=== PATIENT | male | born 1970 | race Two or more races ===

== ENCOUNTER 2018-07-05 11:14 | Inpatient (IN) | payer OTHER ==
[~2018-07-05] VITALS: Ht 172.7 cm; Wt 73.5 kg
[2018-07-05] VITALS (10 sets, daily range): BP systolic 105–137; BP diastolic 58–98
[2018-07-05 12:17] LABS: BASOPHILS % 0.3 % (0.0-2.0); EOSINOPHILS % 0.5 % (0.0-5.0); HEMATOCRIT. 42.2 % (42.0-52.0); HEMOGLOBIN. 14.9 g/dL (14.0-18.0); LYMPHOCYTES % 14.8 % (20.0-50.0); MEAN CORPUSCULAR HEMOGLOBIN 31.7 pg (28.0-32.0); MEAN CORPUSCULAR VOLUME 89.7 fL (80.0-94.0); MONOCYTES % 4.7 % (2.0-8.0); NEUTROPHILS % 79.7 % (40.0-76.0); PLATELET 226 x1000/uL (130-400); RED CELL DISTRIBUTION WIDTH 12.6 % (11.6-14.6)
[2018-07-05 12:24] LABS: CHLORIDE 101 mEq/L (98-107)
[2018-07-05 12:28] LABS: ETHANOL BLOOD < 10 mg/dL
[2018-07-05 12:31] LABS: LDL CHOLESTEROL 116 mg/dL (5-100)
[2018-07-05 12:55] LABS: INR 1.1; PROTHROMBIN TIME 10.7 sec (9.1-11.1)
[2018-07-05] MEDS ORDERED: LORAZEPAM 2MG/ML CPJ IV ONE ×3 (13:15→15:15)
[2018-07-05] MEDS ORDERED: LORAZEPAM 2MG/ML CPJ ONE (13:23)
[2018-07-05] MEDS ORDERED: IOHEXOL-350 100 ML BOTTLE ONE (14:11)
[2018-07-05] MEDS ORDERED: SODIUM CHLORIDE 0.9% 1000ML BAG (SEPSIS BOLUS) IV ONE (15:30)
[2018-07-05] MEDS ORDERED: HALOPERIDOL LACTATE 5MG/ML VIAL IM ONE ×2 (15:45→15:47)
[2018-07-05] MEDS ORDERED: DIPHENHYDRAMINE 50MG/ML VIAL IM PRN (15:45)
[2018-07-05] MEDS ORDERED: ONDANSETRON HCL 4MG/2ML VIAL IV ONE (15:45)
[2018-07-05 16:29] LABS: CLARITY URINE CLEAR (CLEAR); COLOR URINE YELLOW (YELLOW); KETONES URINE 3+ (NEGATIVE); LEUKOCYTE ESTERASE URINE NEGATIVE (NEGATIVE); NITRITE URINE NEGATIVE (NEGATIVE); OCCULT BLOOD URINE 2+ (NEGATIVE); PH URINE 6.5 (4.5-8.0); PROTEIN URINE NEGATIVE (NEGATIVE); SPECIFIC GRAVITY URINE 1.045 (1.005-1.030); UROBILINOGEN URINE 0.2 E.U./dL (0.2-1.0)
[2018-07-05] MEDS ORDERED: CEFTRIAXONE 2 G PREMIX 50 ML IV ONE (16:30)
[2018-07-05] MEDS ORDERED: VANCOMYCIN 1 G PREMIX 200 ML IV SCH (16:30)
[2018-07-05] MEDS ORDERED: PIPERACILLIN/TAZOBACTAM 3.375GM/50ML PREMIX IV ONE (16:30)
[2018-07-05] MEDS ORDERED: PIPERACILLIN/TAZ 3.375G PREMIX 50 ML IV NR (16:30)
[2018-07-05 16:51] LABS: *COCAINE SCREEN URINE NEGATIVE (NEGATIVE); METHADONE URINE SCREEN NEGATIVE (NEGATIVE); OPIATES URINE SCREEN NEGATIVE (NEGATIVE); PHENCYCLIDINE URINE SCREEN NEGATIVE (NEGATIVE)
[2018-07-05 16:52] LABS: *AMPHETAMINES SCREEN URINE NEGATIVE (NEGATIVE); *BARBITURATES SCREEN URINE NEGATIVE (NEGATIVE); *BENZODIAZEPINES SCREEN URINE NEGATIVE (NEGATIVE); CANNABINOID URINE SCREEN NEGATIVE (NEGATIVE)
[2018-07-05] MEDS ORDERED: HYDROCODONE/ACETAMINOPHEN 5/325MG TABLET PO PRN (17:30)
[2018-07-05] MEDS ORDERED: DOCUSATE SODIUM 100MG CAPSULE PO PRN (17:30)
[2018-07-05] MEDS ORDERED: KCL 10MEQ/50ML PREMIX 50 ML IV SCH (17:30)
[2018-07-05] MEDS ORDERED: ACETAMINOPHEN 325MG TABLET PO PRN (17:30)
[2018-07-05] MEDS ORDERED: ONDANSETRON HCL 4MG/2ML VIAL IV PRN (17:30)
[2018-07-05] MEDS ORDERED: GUAIFENESIN 200MG/10ML SUGAR FREE UDC PO PRN (17:30)
[2018-07-05] MEDS ORDERED: LORAZEPAM 2MG/ML CPJ IV PRN (18:00)
[2018-07-05] MEDS ORDERED: ACETAMINOPHEN 650MG SUPP PR PRN (18:45)
[2018-07-05] MEDS ORDERED: PNEUMOCOCCAL 23-VAL P-SAC VAC 0.5 ML IM ONE (19:15)
[2018-07-05] MEDS ORDERED: ATORVASTATIN CALCIUM 10MG TABLET PO SCH (21:00)
[2018-07-05] MEDS ORDERED: DEXT 5%/0.45% NACL 1000ML 1,000 ML IV SCH (21:30)
[2018-07-06] MEDS ORDERED: ASPIRIN 81MG EC TABLET PO SCH (09:00)
[2018-07-06] MEDS ORDERED: AMLODIPINE 10MG TABLET PO SCH (09:00)
== END 2018-07-05 23:15 | disposition short-term general hospital (02) | DRG 948 ==
LOC: ER 11:14 → EDBEDREQ 12:35 → EDBEDREQTM 15:14 → EDBEDREQSVC 15:14 → MICUSO 15:27 → ENRESERV 15:47
PROVIDERS: ADMIT Hospitalist; ATTEND Hospitalist
DX: R41.82 Altered mental status, unspecified (principal); Z82.3 Family history of stroke
CPT/HCPCS: 36415; 51702; 70450; 70496; 70498; 70551; 71045; 80053; 80305; 81003; 82962; 83605; 83721; 84484; 85025; 85610; 87040; 87086; 93005; 96374; 96375; 96376; 99291; 99292; G0482; J0696; J1630; J2060; J2405; J2543; J7030; J7040; Q9967